=== PATIENT | female | born 1980 | race African-American/Black ===

== ENCOUNTER 2018-09-20 09:52 | Emergency (ER) | payer OTHER ==
[~2018-09-20] VITALS: Ht 180.3 cm; Wt 115.2 kg
[~2018-09-20 09:52] MED LIST: ATENOLOL 50MG T50 M1 PO; BACTRIM DS TAB1 EACH PO; CIPROFLOXACIN500 M1 PO; DOXYCYCLINE 10100 M1 PO; EPIPEN0.3 MG/0.3 IM; FLEXERIL PO; HIBICLENS120 ML TP; KEFLEX500 MG PO; MOBIC7.5 MG PO; MULTIVITAMIN W1 EAC5 PO; NAPROXEN 500MG500 MG PO; NEURONTIN 300300 M1 PO; NKDA; NOHOMEMEDICATIONS; NORCO 5-325 TA1 EACH PO; ONDANSETRON HCL4 M2 PO; PERCOCET 5-3251 EACH PO; PHENERGAN 25 MG25 M1 PO; PHENERGAN 25 MG25 MG PO; PREDNISONE50 MG PO; PROMETHAZINE12.5 M1 PO; PROTONIX40 M2 PO; PROTONIX40 MG PO; REGLAN 5 MG TAB5 MG PO; SENOKOT-S1 TA1 PO; ULTRAM 50MG TAB50 MG PO; VISTARIL 25 MG25 M1 OR; ZOFRAN ODT4 MG PO
[2018-09-20] MEDS ORDERED: MOBIC15 MG PO (11:07)
[2018-09-20] MEDS ORDERED: NORFLEX100 MG PO (11:07)
[2018-09-20] MEDS ORDERED: HYDROCODONE-AP1 EAC6 PO (11:07)
[2018-09-20 12:06] VITALS: BP 146/97
== END 2018-09-20 12:07 | disposition home or self-care (01) ==
LOC: ER 09:52
DX: S39.012A Strain of muscle, fascia and tendon of lower back, initial encounter (principal); I10 Essential (primary) hypertension; K21.9 Gastro-esophageal reflux disease without esophagitis; F17.210 Nicotine dependence, cigarettes, uncomplicated; Z90.49 Acquired absence of other specified parts of digestive tract; Z88.1 Allergy status to other antibiotic agents; Z88.8 Allergy status to other drugs, medicaments and biological substances; W10.9XXA Fall (on) (from) unspecified stairs and steps, initial encounter; Y93.89 Activity, other specified; Y92.89 Other specified places as the place of occurrence of the external cause; Y99.8 Other external cause status